=== PATIENT | female | born 1965 | race Two or more races ===

== ENCOUNTER 2021-10-13 20:14 | Emergency (ER) | payer OTHER ==
[~2021-10-13] VITALS: Ht 160 cm; Wt 101.6 kg
[2021-10-13] MEDS ORDERED: TOPROL XL50 M1 (20:25)
[2021-10-13] MEDS ORDERED: MICARDIS HCT 41 EACH (20:25)
[2021-10-13] MEDS ORDERED: METFORMIN HCL1000 MG (20:25)
[2021-10-13] MEDS ORDERED: VAZALORE81 MG (20:26)
[2021-10-13] MEDS ORDERED: HYDROCHLOROTHIA25 MG (20:26)
== END 2021-10-13 22:26 | disposition home or self-care (01) ==
LOC: ER 20:14
DX: M25.571 Pain in right ankle and joints of right foot (principal); Z88.5 Allergy status to narcotic agent; E11.9 Type 2 diabetes mellitus without complications; Z79.84 Long term (current) use of oral hypoglycemic drugs; Z79.82 Long term (current) use of aspirin; I10 Essential (primary) hypertension; E78.00 Pure hypercholesterolemia, unspecified